=== PATIENT | male | born 1935 | race Hispanic/Latino ===

== ENCOUNTER 2018-04-16 02:31 | Emergency (ER) | payer MEDICARE, OTHER ==
[2018-04-16 03:46] LABS: Basophils % (Auto) 0.5 % (0.0-1.8); Eosinophils # (Auto) 0.4 K/mm3 (0.0-0.4); Eosinophils % (Auto) 6.5 % (0.0-4.3); Hematocrit 39.9 % (35.5-45.6); Hemoglobin 12.8 gm/dl (11.8-15.2); Lymphocytes # (Auto) 0.9 K/mm3 (1.2-5.4); Lymphocytes % (Auto) 13.4 % (13.4-35.0); Mean Corpuscular HGB Conc 32 % (32-34); Mean Corpuscular Hemoglobin 29 pg (28-32); Mean Corpuscular Volume 91 fl (84-94); Monocytes # (Auto) 0.6 K/mm3 (0.0-0.8); Monocytes % (Auto) 9.9 % (0.0-7.3); Platelet Count 245 K/mm3 (140-440); Red Blood Count 4.38 M/mm3 (3.65-5.03); Red Cell Distribution Width 17.3 % (13.2-15.2)
[2018-04-16 04:10] LABS: Albumin 3.3 g/dL (3.9-5); Calcium 8.9 mg/dL (8.4-10.2)
[2018-04-16] MEDS ORDERED: HumuLIN R IV ONE (04:17)
[2018-04-16] MEDS ORDERED: APRESOLINE IV ONE (04:17)
[2018-04-16] MEDS ORDERED: NACL 0.9% 500 ML 500 ML IV ONE (05:58)
--- NOTE | 2018-04-16 06:24 | Emergency Department Report ---
ED General Adult HPI - General Chief complaint: Neuro Symptoms/Deficit Stated complaint: HIGH BLOOD SUGAR Time Seen by Provider: 04/16/18 06:14 Source: family, EMS (ems notes not available at time of chart dictation), RN notes reviewed, old records reviewed Mode of arrival: Stretcher Limitations: Physical Limitation, Other (patient is a poor historian. Patient cannot give any history. History obtained from caregiver.) - History of Present Illness Initial comments: This is a 82-year-old gentleman who is unknown to this provider previously, past medical history of bilateral above-knee amputations, hypertension, stroke, who is brought to the hospital by a caregiver for nontraumatic right upper extremity shaking. She reports that the patient was in his usual state of health, when he forward to eat, and she noticed his right upper extremity began to shake. She reports that he then leaned forward, and was unable to get himself up, and his right upper extremity continued to shake. Caregiver is not sure what this event was, and brought the patient to the ER for further evaluation. The patient is essentially demented and is nonverbal, cannot communicate, and therefore cannot describe exacerbating or relieving factors, quality of symptoms, or radiation of symptoms. The patient has been at his baseline while in the ER, and his caregiver endorses that he appears to be at his baseline. As per the caregiver, there've been no fevers, no vomiting, no diarrhea, and no lethargy. -: This morning Location: right, upper extremity Severity scale (0 -10): 0 Quality: other (per hpi) Consistency: other (per hpi) Improves with: other (per hpi) Worsens with: other (per hpi) Associated Symptoms: other (per hpi) - Related Data Home Medications Medication Instructions Recorded Confirmed Last Taken Aspirin [Aspirin BABY CHEW TAB] 81 mg PO QDAY #0 05/28/15 04/16/18 Unknown Ferrous Sulfate [Feosol 325 MG tab] 325 mg PO DAILY 05/28/15 04/16/18 Unknown NovoLIN 70/30 100 units SQ Q6H 05/28/15 04/16/18 Unknown Tamsulosin [Flomax] 0.4 mg PO DAILY 05/28/15 04/16/18 Unknown AtorvaSTATin [Lipitor] 80 mg PO QHS 04/16/18 04/16/18 Unknown Diclofenac Sodium [Voltaren] 100 gm TP BID 04/16/18 04/16/18 Unknown Levothyroxine [Synthroid] 100 mcg PO QAM 04/16/18 04/16/18 Unknown Ondansetron [Zofran TAB] 4 mg PO PRN 04/16/18 04/16/18 Unknown amLODIPine [Norvasc] 10 mg PO DAILY 04/16/18 04/16/18 Unknown traZODone [Desyrel] 50 mg PO QHS 04/16/18 04/16/18 Unknown Previous Rx's Medication Instructions Recorded Last Taken Type Nitrofurantoin Wagoner/M-Cryst 100 mg PO Q12HR #14 capsule 04/16/18 Unknown Rx [Macrobid CAP] Allergies Allergy/AdvReac Type Severity Reaction Status Date / Time No Known Allergies Allergy Verified 04/16/18 02:59 ED Review of Systems ROS: Stated complaint: HIGH BLOOD SUGAR Other details as noted in HPI Comment: Unobtainable due to pts medical conditions ED Past Medical Hx - Past Medical History Previous Medical History?: Yes Hx Hypertension: Yes Hx CVA: Yes (December 2017) Hx Congestive Heart Failure: No Hx Diabetes: Yes Hx Arthritis: Yes Hx Asthma: No Hx COPD: No Additional medical history: high cholesterol - Surgical History Past Surgical History?: Yes Additional Surgical History: Bilateral AKA - Social History Smoking Status: Unknown if ever smoked - Medications Home Medications: Home Medications Medication Instructions Recorded Confirmed Last Taken Type Aspirin [Aspirin BABY CHEW TAB] 81 mg PO QDAY #0 05/28/15 04/16/18 Unknown History Ferrous Sulfate [Feosol 325 MG tab] 325 mg PO DAILY 05/28/15 04/16/18 Unknown History NovoLIN 70/30 100 units SQ Q6H 05/28/15 04/16/18 Unknown History Tamsulosin [Flomax] 0.4 mg PO DAILY 05/28/15 04/16/18 Unknown History AtorvaSTATin [Lipitor] 80 mg PO QHS 04/16/18 04/16/18 Unknown History Diclofenac Sodium [Voltaren] 100 gm TP BID 04/16/18 04/16/18 Unknown History Levothyroxine [Synthroid] 100 mcg PO QAM 04/16/18 04/16/18 Unknown History Nitrofurantoin Wagoner/M-Cryst 100 mg PO Q12HR #14 capsule 04/16/18 Unknown Rx [Macrobid CAP] Ondansetron [Zofran TAB] 4 mg PO PRN 04/16/18 04/16/18 Unknown History amLODIPine [Norvasc] 10 mg PO DAILY 04/16/18 04/16/18 Unknown History traZODone [Desyrel] 50 mg PO QHS 04/16/18 04/16/18 Unknown History ED Physical Exam - General Limitations: Physical Limitation General appearance: alert, in no apparent distress - Head Head exam: Present: atraumatic, normocephalic - Eye Eye exam: Present: normal appearance - ENT ENT exam: Present: mucous membranes dry - Neck Neck exam: Present: normal inspection, full ROM - Respiratory Respiratory exam: Present: normal lung sounds bilaterally. Absent: respiratory distress - Cardiovascular Cardiovascular Exam: Present: regular rate, normal rhythm, normal heart sounds. Absent: bradycardia, tachycardia, irregular rhythm, systolic murmur, diastolic murmur, rubs, gallop - GI/Abdominal GI/Abdominal exam: Present: soft, normal bowel sounds. Absent: distended, tenderness, guarding, rebound, rigid, pulsatile mass - Rectal Rectal exam: Present: deferred - Extremities Exam Extremities exam: Present: normal inspection, full ROM, other (2+ pulses noted in the bilateral upper extremities. Compartments soft. Status post bilateral lower extremity above-knee amputations.). Absent: tenderness - Back Exam Back exam: Present: normal inspection. Absent: paraspinal tenderness, vertebral tenderness - Neurological Exam Neurological exam: Present: alert, other (the patient does not speak in any sensible sentences. He makes nonsensical sounds. He follows commands. He lifts the bilateral upper extremities against gravity to command. He lifts the bilateral lower extremity stumps against gravity to command. Cannot assess sensation. There is no obvious facial droop. Extraocular movements are intact. Unable to assess remainder of cranial nerves secondary to patient's inability to cooperate with exam.) - Psychiatric Psychiatric exam: Present: normal affect, normal mood - Skin Skin exam: Present: warm, dry, intact, normal color. Absent: rash ED Course Vital Signs 04/16/18 04/16/18 04/16/18 02:59 03:00 03:10 Temperature 97.7 F Pulse Rate 75 72 Respiratory 20 22 12 Rate Blood Pressure 172/100 170/99 Blood Pressure [Right] O2 Sat by Pulse 100 100 99 Oximetry 07/16/18 07/16/18 07/16/18 03:12 03:15 03:30 Temperature 97.7 F Pulse Rate 72 74 76 Respiratory 18 15 24 Rate Blood Pressure 177/106 177/113 Blood Pressure 170/99 [Right] O2 Sat by Pulse 99 99 97 Oximetry 04/16/18 04/16/18 04/16/18 03:45 04:00 04:29 Temperature Pulse Rate 70 77 78 Respiratory 17 14 Rate Blood Pressure 176/107 176/107 175/106 Blood Pressure [Right] O2 Sat by Pulse 97 99 Oximetry 04/16/18 04/16/18 04/16/18 04:30 05:00 05:06 Temperature Pulse Rate 82 81 82 Respiratory 16 26 H 28 H Rate Blood Pressure 150/129 150/129 150/129 Blood Pressure [Right] O2 Sat by Pulse 100 100 98 Oximetry 04/16/18 04/16/18 04/16/18 05:10 05:16 05:20 Temperature Pulse Rate 78 76 79 Respiratory 32 H 22 26 H Rate Blood Pressure 150/129 150/129 150/129 Blood Pressure [Right] O2 Sat by Pulse 97 100 100 Oximetry 04/16/18 04/16/18 04/16/18 05:26 05:30 05:36 Temperature Pulse Rate 75 74 76 Respiratory 24 23 24 Rate Blood Pressure 150/129 150/129 150/129 Blood Pressure [Right] O2 Sat by Pulse 99 100 100 Oximetry 04/16/18 04/16/18 04/16/18 05:40 05:46 05:50 Temperature Pulse Rate 72 77 77 Respiratory 18 25 H 21 Rate Blood Pressure 150/129 75/51 84/51 Blood Pressure [Right] O2 Sat by Pulse 98 100 98 Oximetry 04/16/18 04/16/18 04/16/18 05:55 06:00 06:05 Temperature Pulse Rate 75 72 73 Respiratory 26 H 24 22 Rate Blood Pressure 96/60 95/63 98/58 Blood Pressure [Right] O2 Sat by Pulse 100 100 83 L Oximetry 04/16/18 04/16/18 04/16/18 06:10 06:16 06:20 Temperature Pulse Rate 74 73 76 Respiratory 25 H 16 20 Rate Blood Pressure 95/55 95/55 105/70 Blood Pressure [Right] O2 Sat by Pulse 100 100 98 Oximetry 0704/16/18 04/16/18 06:25 06:30 06:36 Temperature Pulse Rate 74 74 77 Respiratory 17 21 19 Rate Blood Pressure 113/66 126/71 90/71 Blood Pressure [Right] O2 Sat by Pulse 98 100 100 Oximetry 04/16/18 04/16/18 04/16/18 06:40 06:46 06:50 Temperature Pulse Rate 85 78 75 Respiratory 21 15 23 Rate Blood Pressure 90/71 140/72 114/69 Blood Pressure [Right] O2 Sat by Pulse 83 L 94 94 Oximetry ED Medical Decision Making - Lab Data Result diagrams: 04/16/18 03:25 04/16/18 03:25 Vital Signs 04/16/18 04/16/18 04/16/18 02:59 03:00 03:10 Temperature 97.7 F Pulse Rate 75 72 Respiratory 20 22 12 Rate Blood Pressure 172/100 170/99 Blood Pressure [Right] O2 Sat by Pulse 100 100 99 Oximetry 04/16/18 04/16/18 04/16/18 03:12 03:15 03:30 Temperature 97.7 F Pulse Rate 72 74 76 Respiratory 18 15 24 Rate Blood Pressure 177/106 177/113 Blood Pressure 170/99 [Right] O2 Sat by Pulse 99 99 97 Oximetry 04/16/18 04/16/18 04/16/18 03:45 04:00 04:29 Temperature Pulse Rate 70 77 78 Respiratory 17 14 Rate Blood Pressure 176/107 176/107 175/106 Blood Pressure [Right] O2 Sat by Pulse 97 99 Oximetry 04/16/18 04/16/18 04/16/18 04:30 05:00 05:06 Temperature Pulse Rate 82 81 82 Respiratory 16 26 H 28 H Rate Blood Pressure 150/129 150/129 150/129 Blood Pressure [Right] O2 Sat by Pulse 100 100 98 Oximetry 04/16/18 04/16/18 04/16/18 05:10 05:16 05:20 Temperature Pulse Rate 78 76 79 Respiratory 32 H 22 26 H Rate Blood Pressure 150/129 150/129 150/129 Blood Pressure [Right] O2 Sat by Pulse 97 100 100 Oximetry 04/16/18 04/16/18 04/16/18 05:26 05:30 05:36 Temperature Pulse Rate 75 74 76 Respiratory 24 23 24 Rate Blood Pressure 150/129 150/129 150/129 Blood Pressure [Right] O2 Sat by Pulse 99 100 100 Oximetry 04/16/18 04/16/18 04/16/18 05:40 05:46 05:50 Temperature Pulse Rate 72 77 77 Respiratory 18 25 H 21 Rate Blood Pressure 150/129 75/51 84/51 Blood Pressure [Right] O2 Sat by Pulse 98 100 98 Oximetry 04/16/18 04/16/18 04/16/18 05:55 06:00 06:05 Temperature Pulse Rate 75 72 73 Respiratory 26 H 24 22 Rate Blood Pressure 96/60 95/63 98/58 Blood Pressure [Right] O2 Sat by Pulse 100 100 83 L Oximetry 04/16/18 04/16/18 04/16/18 06:10 06:16 06:20 Temperature Pulse Rate 74 73 76 Respiratory 25 H 16 20 Rate Blood Pressure 95/55 95/55 105/70 Blood Pressure [Right] O2 Sat by Pulse 100 100 98 Oximetry 04/16/18 04/16/18 04/16/18 06:25 06:30 06:36 Temperature Pulse Rate 74 74 77 Respiratory 17 21 19 Rate Blood Pressure 113/66 126/71 90/71 Blood Pressure [Right] O2 Sat by Pulse 98 100 100 Oximetry 04/16/18 04/16/18 04/16/18 06:40 06:46 06:50 Temperature Pulse Rate 85 78 75 Respiratory 21 15 23 Rate Blood Pressure 90/71 140/72 114/69 Blood Pressure [Right] O2 Sat by Pulse 83 L 94 94 Oximetry Lab Results 04/16/18 04/16/18 04/16/18 Range/Units 03:02 03:25 03:25 WBC 6.5 (4.5-11.0) K/mm3 RBC 4.38 (3.65-5.03) M/mm3 Hgb 12.8 (11.8-15.2) gm/dl Hct 39.9 (35.5-45.6) % MCV 91 (84-94) fl MCH 29 (28-32) pg MCHC 32 (32-34) % RDW 17.3 H (13.2-15.2) % Plt Count 245 (140-440) K/mm3 Lymph % (Auto) 13.4 (13.4-35.0) % Wagoner % (Auto) 9.9 H (0.0-7.3) % Eos % (Auto) 6.5 H (0.0-4.3) % Baso % (Auto) 0.5 (0.0-1.8) % Lymph # 0.9 L (1.2-5.4) K/mm3 Wagoner # 0.6 (0.0-0.8) K/mm3 Eos # 0.4 (0.0-0.4) K/mm3 Baso # 0.0 (0.0-0.1) K/mm3 Seg Neutrophils % 69.7 (40.0-70.0) % Seg Neutrophils # 4.5 (1.8-7.7) K/mm3 VBG pH (7.320-7.420) Sodium (137-145) mmol/L Potassium (3.6-5.0) mmol/L Chloride (98-107) mmol/L Carbon Dioxide (22-30) mmol/L Anion Gap mmol/L BUN (9-20) mg/dL Creatinine (0.8-1.5) mg/dL Estimated GFR ml/min BUN/Creatinine Ratio % Glucose (75-100) mg/dL POC Glucose 469 H (70-105) Lactic Acid 1.40 (0.7-2.0) mmol/L Calcium (8.4-10.2) mg/dL Total Bilirubin (0.1-1.2) mg/dL AST (5-40) units/L ALT (7-56) units/L Alkaline Phosphatase (35-129) units/L NT-Pro-B Natriuret Pep (0-900) pg/mL Total Protein (6.3-8.2) g/dL Albumin (3.9-5) g/dL Albumin/Globulin Ratio % Urine Color (Yellow) Urine Turbidity (Clear) Urine pH (5.0-7.0) Ur Specific [place] (1.003-1.030) Urine Protein (Negative) mg/dL Urine Glucose (UA) (Negative) mg/dL Urine Ketones (Negative) mg/dL Urine Blood (Negative) Urine Nitrite (Negative) Urine Bilirubin (Negative) Urine Urobilinogen (<2.0) mg/dL Ur Leukocyte Esterase (Negative) Urine WBC (Auto) (0.0-6.0) /HPF Urine RBC (Auto) (0.0-6.0) /HPF Urine Bacteria (Auto) (Negative) /HPF Urine Mucus /HPF 04/16/18 04/16/18 04/16/18 Range/Units 03:25 03:25 03:25 WBC (4.5-11.0) K/mm3 RBC (3.65-5.03) M/mm3 Hgb (11.8-15.2) gm/dl Hct (35.5-45.6) % MCV (84-94) fl MCH (28-32) pg MCHC (32-34) % RDW (13.2-15.2) % Plt Count (140-440) K/mm3 Lymph % (Auto) (13.4-35.0) % Wagoner % (Auto) (0.0-7.3) % Eos % (Auto) (0.0-4.3) % Baso % (Auto) (0.0-1.8) % Lymph # (1.2-5.4) K/mm3 Wagoner # (0.0-0.8) K/mm3 Eos # (0.0-0.4) K/mm3 Baso # (0.0-0.1) K/mm3 Seg Neutrophils % (40.0-70.0) % Seg Neutrophils # (1.8-7.7) K/mm3 VBG pH 7.328 (7.320-7.420) Sodium 131 L (137-145) mmol/L Potassium 5.1 H (3.6-5.0) mmol/L Chloride 94.3 L (98-107) mmol/L Carbon Dioxide 24 (22-30) mmol/L Anion Gap 18 mmol/L BUN 38 H (9-20) mg/dL Creatinine 1.9 H (0.8-1.5) mg/dL Estimated GFR 34 ml/min BUN/Creatinine Ratio 20 % Glucose 532 H* (75-100) mg/dL POC Glucose (70-105) Lactic Acid (0.7-2.0) mmol/L Calcium 8.9 (8.4-10.2) mg/dL Total Bilirubin 0.40 (0.1-1.2) mg/dL AST 9 (5-40) units/L ALT 7 (7-56) units/L Alkaline Phosphatase 156 H (35-129) units/L NT-Pro-B Natriuret Pep 9166 H (0-900) pg/mL Total Protein 6.9 (6.3-8.2) g/dL Albumin 3.3 L (3.9-5) g/dL Albumin/Globulin Ratio 0.9 % Urine Color (Yellow) Urine Turbidity (Clear) Urine pH (5.0-7.0) Ur Specific [place] (1.003-1.030) Urine Protein (Negative) mg/dL Urine Glucose (UA) (Negative) mg/dL Urine Ketones (Negative) mg/dL Urine Blood (Negative) Urine Nitrite (Negative) Urine Bilirubin (Negative) Urine Urobilinogen (<2.0) mg/dL Ur Leukocyte Esterase (Negative) Urine WBC (Auto) (0.0-6.0) /HPF Urine RBC (Auto) (0.0-6.0) /HPF Urine Bacteria (Auto) (Negative) /HPF Urine Mucus /HPF 04/16/18 04/16/18 Range/Units 05:57 06:44 WBC (4.5-11.0) K/mm3 RBC (3.65-5.03) M/mm3 Hgb (11.8-15.2) gm/dl Hct (35.5-45.6) % MCV (84-94) fl MCH (28-32) pg MCHC (32-34) % RDW (13.2-15.2) % Plt Count (140-440) K/mm3 Lymph % (Auto) (13.4-35.0) % Wagoner % (Auto) (0.0-7.3) % Eos % (Auto) (0.0-4.3) % Baso % (Auto) (0.0-1.8) % Lymph # (1.2-5.4) K/mm3 Wagoner # (0.0-0.8) K/mm3 Eos # (0.0-0.4) K/mm3 Baso # (0.0-0.1) K/mm3 Seg Neutrophils % (40.0-70.0) % Seg Neutrophils # (1.8-7.7) K/mm3 VBG pH (7.320-7.420) Sodium (137-145) mmol/L Potassium (3.6-5.0) mmol/L Chloride (98-107) mmol/L Carbon Dioxide (22-30) mmol/L Anion Gap mmol/L BUN (9-20) mg/dL Creatinine (0.8-1.5) mg/dL Estimated GFR ml/min BUN/Creatinine Ratio % Glucose (75-100) mg/dL POC Glucose 290 H (70-105) Lactic Acid (0.7-2.0) mmol/L Calcium (8.4-10.2) mg/dL Total Bilirubin (0.1-1.2) mg/dL AST (5-40) units/L ALT (7-56) units/L Alkaline Phosphatase (35-129) units/L NT-Pro-B Natriuret Pep (0-900) pg/mL Total Protein (6.3-8.2) g/dL Albumin (3.9-5) g/dL Albumin/Globulin Ratio % Urine Color Yellow (Yellow) Urine Turbidity Cloudy (Clear) Urine pH 5.0 (5.0-7.0) Ur Specific [place] 1.013 (1.003-1.030) Urine Protein 30 mg/dl (Negative) mg/dL Urine Glucose (UA) >=500 (Negative) mg/dL Urine Ketones Neg (Negative) mg/dL Urine Blood Mod (Negative) Urine Nitrite Neg (Negative) Urine Bilirubin Neg (Negative) Urine Urobilinogen < 2.0 (<2.0) mg/dL Ur Leukocyte Esterase Lg (Negative) Urine WBC (Auto) 163.0 H (0.0-6.0) /HPF Urine RBC (Auto) 12.0 (0.0-6.0) /HPF Urine Bacteria (Auto) 1+ (Negative) /HPF Urine Mucus Few /HPF - EKG Data -: EKG Interpreted by Dc EKG shows normal: sinus rhythm - EKG Data Interpretation: no acute changes 04/16/18 07:57 Sinus, 71 bpm, left axis deviation, poor R-wave progression, QT, QTC within normal limits, appears grossly unchanged from prior from May 2015 - Radiology Data Radiology results: report reviewed, image reviewed Noncontrast CT scan of the brain is negative for acute disease. Chronic findings noted. - Medical Decision Making Differential diagnosis, including but not limited to: Hyperglycemia, urinary tract infection, intracranial hemorrhage, underlying vascular dementia, general debility Assessment and plan: 82-year-old male with multiple vascular issues, who was in his usual state of health and began to have reported tremors in his right upper extremity, leaned forward, arm fell behind his back, and began to twitch. This lasted for a few minutes. It has been resolved for hours. The patient has been observed in the ER for hours without clinical decompensation. His laboratory studies demonstrated renal insufficiency, hyperglycemia, patient was given IV fluids, insulin, an antihypertensive medicine prior to my arrival. A noncontrast CT scan of the brain is negative for acute disease, a urinalysis suggested urinary tract infection, patient cannot describe symptoms at this time. Patient already taking aspirin at this time. Symptoms very unlikely to be related to stroke. Patient will be continued on aspirin, he will be started on Macrobid, he is suitable to follow-up with his outpatient primary care doctor. Objectively speaking, but does not appear to be an emergency demonstrated condition at this time. Critical care attestation.: If time is entered above; I have spent that time in minutes in the direct care of this critically ill patient, excluding procedure time. ED Disposition Clinical Impression: Renal insufficiency, History of convulsions Disposition: TO HOME OR SELFCARE Is pt being admited?: No Does the pt Need Aspirin: No Condition: Good Additional Instructions: Laboratory studies indicated the presence of a probable urinary tract infection , as well as impaired kidney functions. Continue current outpatient medications , take the antibiotics as directed, and follow up with the primary care doctor or neurology specialist within the next week. Return to the ER right away with lethargy, irritability, projectile vomiting, change in mental status, confusion , inability to tolerate liquid feeds. Referrals: KM MCKAY MD [Primary Care Provider] - 3-5 Days JOSE ALFREDO COSTELLO MD [Referring] - 3-5 Days CHELSEA JOINER MD [Staff Physician] - 3-5 Days IBIS PEREZ MD [Staff Physician] - 3-5 Days
[2018-04-16 07:18] LABS: Bacteria,Urine 1+ /HPF (Negative); Bilirubin,Urine NEG (Negative); Blood,Urine MOD (Negative); Color,Urine Yellow (Yellow); Mucus,Urine FEW /HPF; Urobilinogen,Urine < 2.0 mg/dL (<2.0)
--- NOTE | 2018-04-16 07:35 | Cat Scan Report ---
FINAL REPORT PROCEDURE: CT HEAD/BRAIN WO CON TECHNIQUE: Computerized tomography of the head was performed without contrast material. HISTORY: convulsion COMPARISON: No prior studies are available for comparison. FINDINGS: Skull and scalp: Normal. Paranasal sinuses: Normal. Ventricles and subarachnoid spaces: There is moderate central and cortical atrophy. There is no hydrocephalus or asymmetry.. Cerebrum: No evidence of hemorrhage, acute infarction or mass. There are focal areas of encephalomalacia in the left frontal lobe and the left occipital lobe suggesting old infarcts. Cerebellum and brainstem: No evidence of hemorrhage, acute infarction or mass. Vasculature: Normal. Comments: None. IMPRESSION: There is no hemorrhage, edema, mass, mass effect or midline shift. There are chronic changes as described
[2018-04-16 10:03] VITALS: BP 125/84
== END 2018-04-16 08:55 | disposition home or self-care (01) ==
LOC: ED 02:31
DX: E11.65 Type 2 diabetes mellitus with hyperglycemia (principal); I12.9 Hypertensive chronic kidney disease with stage 1 through stage 4 chronic kidney disease, or unspecified chronic kidney disease; N18.9 Chronic kidney disease, unspecified; E11.29 Type 2 diabetes mellitus with other diabetic kidney complication; E78.00 Pure hypercholesterolemia, unspecified; M19.90 Unspecified osteoarthritis, unspecified site; Z89.612 Acquired absence of left leg above knee; Z89.611 Acquired absence of right leg above knee; Z79.82 Long term (current) use of aspirin; Z79.4 Long term (current) use of insulin
CPT/HCPCS: 36415; 70450; 80053; 81001; 82140; 82805; 82962; 83880; 85025; 93005; 93010; 96374; 96375; 99284; J0360; J7040; J1815